=== PATIENT | male | born 1995 | race Caucasian/White ===

== ENCOUNTER 2021-03-11 13:56 | Outpatient (CLI) | payer OTHER, SELFPAY ==
--- NOTE | ~2021-03-11 | CT_ITS ---
EXAMINATION: CT abdomen pelvis w con INDICATION: Left lower quadrant pain TECHNIQUE: Computed tomographic images of the abdomen and pelvis were obtained after the administrati on of 100 cc of Omnipaque 350 intravenous contrast. The dose-length product (DLP) was 321.84 mGy-cm. Automated exposure control and iterative reconstruction technique were employed. COMPARISON: None available FINDINGS: The lung bases are clear. The heart size is normal. The liver, spleen, pancreas, gallbladde r, and adrenal glands are normal. The kidneys are unremarkable. The appendix is not visualized, consi stent with history of appendectomy. No pathologically enlarged abdominal or pelvic lymph nodes are id entified. There is no free intraperitoneal gas or evidence of bowel obstruction. There is a circumscr ibed area of fat attenuation adjacent to the mid descending colon with surrounding fat stranding. IMPRESSION: 1. Findings consistent with epiploic appendagitis of the mid descending colon. Differential includes focal colitis and diverticulitis. Reviewed, dictated and finalized at location A.
[2021-03-11 14:11] LABS: Hematocrit 49.5 % (40.0-54.0); Hemoglobin 17.4 g/dL (14.0-18.0); Mean Corpuscular HGB Conc 35.2 g/dL (32.0-36.0); Mean Corpuscular Hemoglobin 29.3 pg (27.0-31.0); Mean Corpuscular Volume 83.5 fL (78.0-102.0); Platelet Count Result 252 K/mm3 (150-420); Red Blood Count 5.93 M/mm3 (4.70-6.10); Red Cell Distribution Width 11.7 % (11.6-14.4)
[2021-03-11 14:28] LABS: Alanine Aminotransferase 21 U/L (16-63); Albumin Level 4.6 g/dL (3.4-5.0); Alkaline Phosphatase 95 U/L (46-116); Anion Gap 10 mmol/L (8-16); Aspartate Amino Transferase 15 U/L (15-37); Bilirubin,Total 0.6 mg/dL (0.00-1.00); Blood Urea Nitrogen 14 mg/dL (7-18); Calcium 9.2 mg/dL (8.5-10.1); Carbon Dioxide 29 mmol/L (21-32); Chloride 105 mmol/L (98-108); Estimated Glomerular Filt Rate > 60; Glucose 85 mg/dL (70-99); Osmolality Calculated 297 mOsm/kg (285-295); Potassium 4.3 mmol/L (3.5-5.1); Sodium 144 mmol/L (136-145); Total Protein 8.1 g/dL (6.4-8.2)
[2021-03-11 15:20] LABS: Add Urine Microscopic? NO; Appearance Urine Clear (Clear); Bilirubin Urine Negative (Negative); Blood Urine Negative (Negative); Color Urine Light Yellow (Yellow); Glucose Urine UA Negative (Negative); Ketones Urine Negative (Negative); Leukocyte Esterase Ur Negative (Negative); Nitrate Urine Negative (Negative); Protein Urine Negative (Negative); Specific Grav Ur 1.025 (1.010-1.020); Urobilinogen Urine 0.2 mg/dL (0.2-1.0)
== END 2021-03-11 13:57 | disposition home or self-care (01) ==
PROVIDERS: PCP Family Medicine; Visit Provider Family Medicine
DX: R10.9 Unspecified abdominal pain (principal)
CPT/HCPCS: 36415; 74177; 80053; 81003; 85027; Q9967

== ENCOUNTER 2022-12-18 11:56 | Outpatient (CLI) | payer OTHER, SELFPAY ==
[2022-12-18 12:13] LABS: Basophils Absolute Auto 0.05 K/mm3 (0.00-0.10); Basophils Percent Auto 0.8 % (0.0-1.0); Eosinophils Absolute Auto 0.15 K/mm3 (0.02-0.50); Eosinophils Percent Auto 2.4 % (1.0-6.0); Hematocrit 47.2 % (40.0-54.0); Hemoglobin 16.5 g/dL (14.0-18.0); Immature Granulocyte Absolute 0.02 K/mm3 (0.00-0.00); Immature Granulocyte Percent A 0.3 % (0.0-0.0); Lymphocytes Absolute Auto 1.43 K/mm3 (1.10-4.50); Mean Corpuscular Volume 83.1 fL (78.0-102.0); Mean Platelet Volume 9.5 fl (8.7-11.0); Monocytes Absolute Auto 0.56 K/mm3 (0.10-0.90); Neutrophils Percent Auto 64.5 % (50.0-70.0); Platelet Count Result 218 K/mm3 (150-420); Red Blood Count 5.68 M/mm3 (4.70-6.10); Red Cell Distribution Width 11.8 % (11.6-14.4); White Blood Count 6.2 K/mm3 (4.8-10.8)
[2022-12-18 12:23] LABS: Hemoglobin A1C 4.9 % (<5.7)
[2022-12-18 12:52] LABS: Alanine Aminotransferase 19 U/L (16-63); Albumin Level 4.2 g/dL (3.4-5.0); Alkaline Phosphatase 86 U/L (46-116); Anion Gap 8 mmol/L (8-16); Aspartate Amino Transferase 16 U/L (15-37); Bilirubin,Total 0.3 mg/dL (0.00-1.00); Blood Urea Nitrogen 11 mg/dL (7-18); Carbon Dioxide 30 mmol/L (21-32); Chloride 106 mmol/L (98-108); Cholesterol 145 mg/dL (0-200); Estimated Glomerular Filt Rate > 60; Glucose 74 mg/dL (70-99); HDL Direct 52 mg/dL (40-60); LDL Cholesterol Calculated 83 mg/dL (<130); Osmolality Calculated 296 mOsm/kg (285-295); Potassium 3.8 mmol/L (3.5-5.1); Sodium 144 mmol/L (136-145); Total Protein 7.4 g/dL (6.4-8.2); Triglycerides 50 mg/dL (0-150)
[2022-12-23 13:01] LABS: Vitamin D 25 Hydroxy 45 ng/mL (30-100)
== END 2022-12-18 11:57 | disposition home or self-care (01) ==
LOC: CHSLAB 12:00
PROVIDERS: PCP Family Medicine
DX: F32.9 Major depressive disorder, single episode, unspecified (principal)
CPT/HCPCS: 36415; 80053; 80061; 82306; 83036; 85025

== ENCOUNTER 2023-01-27 21:02 | Emergency (ER) | payer OTHER, SELFPAY ==
--- NOTE | ~2023-01-27 | XR_ITS ---
EXAM: XR ankle RT min 3V, XR foot RT min 3V DATE: 01/27/2023 21:26 (accession [id number]), 01/27/2023 21:27 (accession [id number]) HISTORY: twisted his ankle/POSTERIOR AND LATERAL PAIN . COMPARISON: None available. FINDINGS: Normal mineralization. No fracture or dislocation. No lytic or blastic lesion. Joint space s are maintained. No erosion or periosteal change. Mild lateral soft tissue swelling. IMPRESSION: No acute osseous finding in the right ankle or right foot. Reviewed, dictated and finalized at location K. IMPRESSION: No acute osseous finding in the right ankle or right foot.
[2023-01-27 21:04] VITALS: BP 142/82; PULSE 90; RESP 16; TEMP 37.1; O2SAT 99
--- NOTE | 2023-01-27 21:07 | ED.LOWEXIN ---
HPI - Extremity Injury (Lower) General Chief Complaint: Extremity Injury, Lower Stated Complaint: right ankle injury Time Seen by Provider: 01/27/23 21:07 Source: patient Mode of arrival: ambulatory Limitations: no limitations History of Present Illness HPI Narrative: 27-year-old male twisted his right ankle after he stepped on a hole at 11 a.m. this morning. He presents to the ER with -- pain and swelling of his right foot and right ankle no previous injury. He is unable to bear weight. No other injuries noted. MD complaint: ankle injury Onset (ago): hour(s) ( 10 hours ago) Injury: Right: ankle and foot Type of Injury: inversion Place: home Severity: severe Relieving factors: immobilization Exacerbating factors: weight bearing Other symptoms: none Related Data Home Medications Medication Instructions Recorded Confirmed lamotrigine 100 mg tablet 100 mg PO DAILY 01/27/23 01/27/23 Allergies Allergy/AdvReac Type Severity Reaction Status Date / Time Penicillins Allergy Unknown Unknown Verified 01/27/23 21:04 Review of Systems Review of Systems: All systems reviewed & are unremarkable except as noted in HPI and below PMFSH Past Medical History Medical History Depression Surgical History Surgical History History of appendectomy Age 1 Social History Social History Smoking status: Never smoker Lack of Transportation: No Lack of Food: Never True Current Housing: I Have Housing Concerned About Future Housing: No Difficulty Paying Gas/Electric Bills: No Difficulty Paying for Meds: No Currently Unemployed: No Education: Trade/Vocational Certificate Difficulty w/ Childcare or Family Care: No Exam Const: General: healthy appearing Nutritional Appearance: well nourished Orientation/consciousness: patient oriented x3 Limitations: no limitations HENMT: Head: normal to inspection Ears: external ears normal Face/Nose/Sinus: Normal external nose present Face and sinus: normal facial exam Mouth: Yes Normal oral and palatal mucosa present Throat: posterior oropharynx normal Eyes: Conjunctivae: conjunctivae normal Pupils: Equal, round and reactive pupils present EOM: EOMs intact bilaterally Direct Ophthalmoscopy: no photophobia Neck: Neck: normal visual inspection, no lymphadenopathy and no meningeal signs Chest: Chest palpation & inspection: normal inspection of the chest Resp: Effort & Inspection: normal respiratory effort Auscultation: clear to auscultation bilaterally Cardio: Rate: regular rate Rhythm: regular rhythm GI: GI Palp: Yes Soft to palpation Auscultation: normal bowel sounds Back/Spine/Pelvis: Back: no CVA tenderness Skin: General skin exam: normal color Rashes: no rashes Wounds: no wounds Neuro: General: patient oriented x3, moves all extremities, no meningeal signs, no focal motor deficits and CN's II-XI intact bilaterally Cranial nerves: Yes Nystagmus not present Speech: normal speech Gait exam (Neuro): Normal gait present Extrem: General: normal to inspection, no clubbing, cyanosis or edema and no pedal edema Other: pain and swelling of his right foot. Tenderness around lateral malleolus and the proximal foot Psych: Mental Status: mental status grossly normal Affect: normal affect Attitude: cooperative Course Course Emergency Course: right foot/ ankle sprain-- Will get an x-ray to rule out fracture/dislocation patient took ibuprofen before he came to the ER and does not want anything for pain at this time. X-ray of the foot and the ankle are negative for fracture. Would recommend an ankle splint and nonweightbearing for 2 weeks. Vital Signs Vital signs: Vital Signs Temperature 37.1 C 01/27/23 21:04 Pulse Rate 90 01/27/23 21:04 Respiratory Rate 16 01/09
== END 2023-01-27 21:57 | disposition home or self-care (01) ==
PROVIDERS: Emergency Provider Internal Medicine Critical Care Medicine; PCP Family Medicine
DX: S93.411A Sprain of calcaneofibular ligament of right ankle, initial encounter (principal); S93.601A Unspecified sprain of right foot, initial encounter; X50.9XXA Other and unspecified overexertion or strenuous movements or postures, initial encounter; Y92.009 Unspecified place in unspecified non-institutional (private) residence as the place of occurrence of the external cause
CPT/HCPCS: 29515; 73610; 73630; 99283; L4350

== ENCOUNTER 2023-11-10 18:23 | Emergency (ER) | payer OTHER, SELFPAY ==
--- NOTE | ~2023-11-10 | CT_ITS ---
EXAMINATION: CT abdomen pelvis wo con DATE: 11/10/2023 19:26 INDICATION: pain TECHNIQUE: Computed tomography (CT) of the abdomen and pelvis was performed without intravenous contr ast. Automated exposure control and iterative reconstruction technique were employed. The dose-length product was 160.79 mGy-cm. COMPARISON: 03/11/2021, report only. FINDINGS: Lower thorax: Minimal dependent scar/atelectasis. Liver: Normal. Biliary/Gallbladder: Gallbladder is normal. No bile duct dilation. Pancreas: No mass or duct dilation. Spleen: Normal. Adrenals:No mass. Kidneys: No suspicious mass, obstructing stone, or hydronephrosis. GI tract: No small or large bowel dilation. Status post appendectomy. Mesentery/Peritoneum: No ascites, mass, or free air. Retroperitoneum: No mass. Pelvis: Pelvic organs are within normal limits. Soft Tissues: Soft tissues and body wall unremarkable. Bones: No acute osseous finding. IMPRESSION: No acute abdominopelvic process detected. Reviewed, dictated and finalized at location K.
--- NOTE | 2023-11-10 18:25 | ED.MALEGU ---
HPI - Male Genitourinary General Chief complaint: Urogenital-Male Stated complaint: urogenital Time Seen by Provider: 11/10/23 18:23 Source: patient Mode of arrival: ambulatory Limitations: no limitations History of Present Illness HPI Narrative: Patient is a 27-year-old male with bilateral testicle and penis pain for the last 2 days. Pain has been progressively getting worse so he came for evaluation. He went to the urgent care today and they said the urine was clear and come to the emergency room for further thoughts. MD Complaint: testicle pain ( Bilaterally) and other ( penile pain) Onset (ago): day(s) (2) Duration: constant and progressively worsening Location: penis, right testicle and left testicle Radiation: penis, right testicle and left testicle Severity: moderate Severity scale (1-10): 3 Quality: aching Relieving factors: none Exacerbating factors: none Associated symptoms: Reports denies other symptoms Related Data Sexually active: Yes Allergies Allergy/AdvReac Type Severity Reaction Status Date / Time Penicillins Allergy Unknown Unknown Verified 11/10/23 18:30 Review of Systems Review of Systems: All systems reviewed & are unremarkable except as noted in HPI and below Constitutional: Constitutional: Reports no additional constitutional complaints Eyes: Eyes: Reports no additional eye complaints ENT: Reports system reviewed and no additional complaints, except as documented Cardiovascular: Cardiovascular: Reports no additional cardiovascular complaints Respiratory: Respiratory: Reports no additional respiratory complaints Gastrointestinal: Gastrointestinal: Reports no additional gastrointestinal complaints Genitourinary: Genitourinary: Reports no additional male genitourinary complaints Musculoskeletal: Musculoskeletal: Reports no additional musculoskeletal complaints Integumentary/Breasts: Skin/Breast: Reports system reviewed and no additional complaints, except as docu Neurologic: Reports system reviewed and no additional complaints, except as documented Psychiatric: Psychiatric: Reports no additional psychiatric complaints Endocrine: Endocrine: Reports no additional endocrine complaints Hematologic/Lymphatic: Hematologic/Lymphatic: Reports no additional hematologic/lymphatic complaints Allergic/Immunologic: Allergic/Immunologic: Reports no additional allergic/immunologic complaints PMFSH Surgical History Surgical History History of appendectomy Age 1 Social History Social History Smoking status: Never smoker Lack of Transportation: No Lack of Food: Never True Current Housing: I Have Housing Concerned About Future Housing: No Difficulty Paying Gas/Electric Bills: No Difficulty Paying for Meds: No Currently Unemployed: No Education: Trade/Vocational Certificate Difficulty w/ Childcare or Family Care: No Exam Const: General: cooperative, healthy appearing and comfortable HENMT: Head: normal to inspection, No palpable skull fracture present and normocephalic Teeth and gingiva: dentition normal Throat: posterior oropharynx normal Eyes: General: appearance normal, both eyes and all related structures Visual Bunn: normal visual bunn by confrontation Alignment and Position: alignment normal Neck: Neck: normal visual inspection, full ROM and no lymphadenopathy Chest: Chest palpation & inspection: normal inspection of the chest and normal palpation of entire chest wall Resp: Effort & Inspection: normal respiratory effort, able to speak in complete sentences, no grunting, not labored and no nasal flaring Cardio: Jugular venous distension: no JVD Palpation: normal PMI Rate: regular rate Rhythm: regular rhythm Heart sounds: S1 normal heart sound present and S2 normal heart sound present GI: Inspection: normal to inspection Other: Rectal exam
[2023-11-10 18:27] VITALS: BP 151/78; PULSE 81; RESP 18; TEMP 36.6; O2SAT 99
[2023-11-10 18:41] LABS: Appearance Urine Clear (Clear); Bilirubin Urine Negative (Negative); Blood Urine Negative (Negative); Color Urine Light Yellow (Yellow); Glucose Urine UA Negative (Negative); Ketones Urine Negative (Negative); Leukocyte Esterase Ur Negative LEU/UL (Negative); Nitrate Urine Negative (Negative); Protein Urine Negative (Negative); pH Urine 6.5 (5.0-8.0)
[2023-11-10 18:42] LABS: Add Urine Microscopic? NO
[2023-11-10 18:51] LABS: Basophils Absolute Auto 0.04 K/mm3 (0.00-0.10); Basophils Percent Auto 0.7 % (0.0-1.0); Eosinophils Absolute Auto 0.32 K/mm3 (0.02-0.50); Eosinophils Percent Auto 5.7 % (1.0-6.0); Hemoglobin 15.2 g/dL (14.0-18.0); Immature Granulocyte Absolute 0.02 K/mm3 (0.00-0.00); Immature Granulocyte Percent A 0.4 % (0.0-0.0); Lymphocytes Absolute Auto 1.79 K/mm3 (1.10-4.50); Mean Corpuscular HGB Conc 33.8 g/dL (32-36); Mean Corpuscular Hemoglobin 28.1 pg (27.0-31.0); Mean Corpuscular Volume 83.2 fL (78.0-102.0); Mean Platelet Volume 9.2 fl (8.7-11.0); Monocytes Absolute Auto 0.36 K/mm3 (0.10-0.90); Monocytes Percent Auto 6.4 % (2.0-11.0); Neutrophils Absolute Auto 3.07 K/mm3 (1.70-7.20); Neutrophils Percent Auto 54.8 % (50.0-70.0); Platelet Count Result 241 K/mm3 (150-420); Red Blood Count 5.41 M/mm3 (4.70-6.10); Red Cell Distribution Width 12.4 % (11.6-14.4); White Blood Count 5.6 K/mm3 (4.8-10.8)
[2023-11-10 19:33] LABS: Alanine Aminotransferase 21 U/L (16-63); Albumin Level 3.8 g/dL (3.4-5.0); Alkaline Phosphatase 99 U/L (46-116); Anion Gap 9 mmol/L (4-12); Aspartate Amino Transferase 14 U/L (15-37); Bilirubin,Total 0.3 mg/dL (0.00-1.00); Blood Urea Nitrogen 12 mg/dL (7-18); Calcium 8.4 mg/dL (8.5-10.1); Carbon Dioxide 28 mmol/L (21-32); Chloride 104 mmol/L (98-108); Estimated Glomerular Filt Rate > 60; Glucose 139 mg/dL (70-99); Osmolality Calculated 293 mOsm/kg (285-295); Potassium 3.6 mmol/L (3.5-5.1); Sodium 141 mmol/L (136-145); Total Protein 7.2 g/dL (6.4-8.2)
[2023-11-10 19:34] LABS: Prostate Specific Antigen 0.3 ng/mL (< OR = 4.0)
[2023-11-10] MEDS: CIPROFLOXACIN 500 MG TAB PO (19:42)
[2023-11-10 20:27] VITALS: BP 140/72; PULSE 80; RESP 18; TEMP 36.6; O2SAT 98
[2023-11-11 20:11] LABS: Chlamydia trachomatis NOT DETECTED (NOT DETECTE); Neisseria gonorrhoeae PCR NOT DETECTED (NOT DETECTE)
== END 2023-11-10 20:27 | disposition home or self-care (01) ==
PROVIDERS: Emergency Provider Emergency Medicine; PCP Family Medicine
DX: N41.0 Acute prostatitis (principal)
CPT/HCPCS: 36415; 74176; 80053; 81003; 84153; 85025; 87491; 87591; 99284; A9270

== ENCOUNTER 2024-09-21 16:00 | Emergency (ER) | payer OTHER, SELFPAY ==
--- OUTSIDE RECORDS SUMMARY | 2024-09-21 16:03 | XMS_ITS | Clinical Summary ---
Author Organization [address] Address [address] [place] [id number] Care Team Providers Care Retail Client Solutions Analyst Name Role Phone Unknown, Notinfile Primary Care Provider Unavail able Allergies Active Allergy Reactions Criticality Noted Date Comments Penicillins Unknown 04/23/2016 Medications lamoTRIgine (LaMICtal) 150 mg tablet TAKE 1 TABLET BY MOUTH TWICE A DAY FOR 30 DAYS 10/13/2023 Active risperiDONE (RisperDAL) 1 mg tablet TAKE 1 TABLET BY MOUTH EVERY DAY AT BEDTIME FOR 30 DAYS 10/13/2023 Active sertraline (ZOLOFT) 100 mg tablet Take 2 tablets (200 mg total) by mouth daily 09/14/2023 Active traZODone (DESYREL) 50 mg tablet TAKE 1 TABLET BY MOUTH EVERY DAY AT BEDTIME NEEDED FOR 30 DAYS 08/25/2023 Active Active Problems No known active problems Social History Tobacco Use Types Packs/Day Years Used Date Smoking Tobacco: Never Assessed Sex and Gender Information Value Date Recorded Sex Assigned at Not on file 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[employer] Gender Identity Not on file Sexual Orientation Not on file Obstetrics History Last Filed Vital Signs Vital Sign Reading Time Taken Comments Blood Pressure 118/74 11/10/2023 2:53 PM CDT Pulse 81 11/10/2023 2:53 PM CDT Temperature 37.1 C (98.7 F) 11/10/2023 2:53 PM CDT Respiratory Rate 20 11/10/2023 2:53 PM CDT Oxygen Saturation 97% 11/10/2023 2:53 PM CDT Inhaled Oxygen Concentration - - Weight 72.6 kg (160 lb) 11/10/2023 2:53 PM CDT Height 167.6 cm (5' 6 ) 11/10/2023 2:53 PM CDT Body Mass Index 25.82 11/10/2023 2:53 PM CDT Plan of Treatment Health Maintenance Due Date Last Done Comments Depression Screening 1994 Hepatitis C Screening 1994 Varicella Vaccines (2 of 2 - 2-dose childhood series) 06/29/2002 04/06/2002 Regular Well Visit/Exam 18-64 2012 Influenza Vaccine (#1) 2024 3, 06/29/2019, 07/09/2018, Additional history exists DTaP/Tdap/Td Vaccine (8 - Td or Tdap) 12/18/2032 12/18/2022, 07/09/2018, 04/23/2016, Additional history exists Hepatitis B Screening Completed 12/10/1995 , 06/29/1995, 03/23/1995, Additional history exists HPV Vaccines Aged Out No longer eligi ble based on patient's age to complete this topic Pneumococcal vaccine <65 Aged Out No longer eligible based on patient's age to complete this topic Insurance [facility] Care Teams Retail Client Solutions Analyst Relationship Specialty Start Date End Date Unknown, Notinfile PCP - General 11/10/23
--- OUTSIDE RECORDS SUMMARY | 2024-09-21 16:03 | XMS_ITS | Clinical Summary ---
Author Organization [facility] Address [address] [place] [address] Phone Care Team Providers Care Cover Operator Name Role Phone Alina Green MD Primary Care Provider Allergies Active Allergy Reactions Criticality Noted Date Comments Penicillins Unknown 04/23/2016 Medications diclofenac (VOLTAREN) 50 MG Tablet Delayed Response Take 1 Tab by mouth 3 times daily. 270 Tab 3 11/09/2018 Active Active Problems Problem Noted Date Diagnosed Date Inguinodynia, bilateral 11/09/2018 Moderate episode of recurrent major depressive d isorder 02/18/2018 Adjustment disorder with depressed mood 02/18/20 18 Immunizations Immunization Administration Dates Next Due TDAP Vaccine 04/23/2016 Family History Relation Name Status Comments Father Alive Mother Alive Social History Tobacco Use Types Packs/Day Years Used Date Smoking Tobacco: Never Smokeless Tobacco: Never Alcohol Use Standard Drinks/Week Comments Yes 0 (1 standard drink = 0.6 oz pur e alcohol) RARELY Sex and Gender Information Value Date Recorded Sex Assigned at Not on file Legal Sex Male 10:11 PM CDT Gender Identity Not on file Sexual Orientation Not on file Last Filed Vital Signs Vital Sign Reading Time Taken Comments Blood Pressure 134/66 12/07/2018 9:40 AM CDT Pulse 73 12/07/2018 9:40 AM CDT Temperature 36.2 C (97.1 F) 12/07/2018 9:40 AM CDT Respiratory Rate 16 12/07/2018 9:40 AM CDT Oxygen Saturation 97% 12/07/2018 9:40 AM CDT Inhaled Oxygen Concentration - - Weight 63.5 kg (140 lb) 12/07/2018 9:40 AM CDT Height 167.6 cm (5' 6 ) 12/07/2018 9:40 AM CDT Body Mass Index 22.6 12/07/2018 9:40 AM CDT Plan of Treatment Health Maintenance Due Date Last Done Comments Hepatitis C Virus (HCV) Screening 1994 Influenza Immunization (#1) 2024 05/29/2003 SARS-COV-2 Immunization ( season) 2024 Respiratory Syncytial Virus (RSV) Immunization (Adult) (1 - 1-dose 75+ series) 2069 Hepatitis B Immunization Completed 996, 06/29/1995, 03/27/1995, Additional history exists DTaP/Tdap/Td Immunization Discontinued 2015, 01/21/1999, 02/08/1996, Additional history exists Meningococcal Immunization (ACWY) Aged Out No longer eligible based on patient's age to complete this topic Pneumococcal Immunization Combined Aged Out No longer eligible based on patient's age to complete this topic Rotavirus Immunization Aged Out No lo nger eligible based on patient's age to complete this topic Insurance MEDICAID [employer] Care Teams Cover Operator Relationship Specialty Start Date End Date Hsjoieg Alina England MD [address] [place] [address] [facility] [place] [address] PCP - General Family Medicine 12/01/18
--- OUTSIDE RECORDS SUMMARY | 2024-09-21 16:03 | XMS_ITS ---
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 Medication concern Medications Medication SIG (Take, Route, Frequency, Duration) Notes Start Date End Date Status risperiDONE 1 MG TAKE 1.5 TABLETS BY MOUTH EVERY DAY AT BEDTIME for 30 Not-Taking Escitalopram Oxalate 10 MG 1 tablet Orally After stopping sertraline- Take one a day for 7 days then increase to 20 mg script Not-Taking lamoTRIgine 200 MG TAKE 1 TABLET BY CARLOS TH EVERY DAY FOR 30 DAYS for 30 Active Escitalopram Oxalate 20 MG 1 tablet Orally Once a day for 30 days Active busPIRone HCl 10 MG 1 tablet Orally Twic e a day for 30 days 03/10/2024 Active traZODone HCl 50 MG 1 tablet at bedtime as needed Orally Once a day Active Escitalopram Oxalate 20 MG TAKE 1 TABLET BY MOUTH EVERY DAY FOR 30 DAYS for 30 Active lamoTRIgine 200 MG 1 tablet Orally Once a day for 30 days Active Problems Problem Type SNOMED Code ICD Code Onset Dates Problem Status W/U Status Risk Notes Problem Anxiety disorder (840656276) Anxiety disorder, unspecified (F41.9) 03/10/2024 Active confirmed Encounters Encounter Location Date Provider Diagnosis [facility] [address] [address] 03/10/2024 Sally Isabel Chronic depression F32.9 and Anxiety disorder, unspecified F41.9 Assessments Encounter Date Diagnosis (ICD Code) Assessment Notes Treatment Notes Treatment Clinical Notes Section Notes 03/10/2024 Chronic depression (ICD-10 - F32.9) 03/10/2024 Anxiety disorder, unspecified (ICD-10 - F41.9) Today's visit: Patient is a 28-year-old male who presents for a psychiatric f/u, this is my first time meeting this patient, and I am seeing them during the temporary absence of current psych provider. Previously seen on 01/26/2024 by SALVATORE Mc and during this appt was increased on Risperdal to 1.5 mg QHS. Previous PHQ-9 score of 14, today is 16. Rodriguez reported increased irritability after his Risperdal dose was increased to 1.5 mg, which improved upon discontinuation. He has self discontinued Risperdal 1 week ago which improved some of his feelings of irritability but not completely. He continues to experience near daily anxiety. He is currently on Lamotrigine and Escitalopram for depression, which he finds helpful, and is in therapy regularly with Delroy. The plan includes discontinuing Risperdal, continuing current depression medications, starting Buspirone for anxiety, and continuing Trazodone for sleep as needed. No acute safety concerns the time of this appt, he is agreeable to treatment plan and was provided an opportunity to ask questions. Begin buspirone. Take as prescribed. Reviewed purpose - decrease anxiety, benefits, and risks - dizziness, headache, nervousness, sedation, excitement, nausea, and restlessness. May self-administer medications or be administered own oral medications per [place] protocols. Provided informed consent with understanding of side effects, adverse effects, risks and benefits as well as alternative treatments as previously discussed and with the above recommended medications & other aspects of the treatment program. Agrees to return sooner if symptoms worsen or suicidal or homicidal ideations occur., Learning About Anxiety Disorders material was printed, Learning About Generalized Anxiety Disorder material was printed, Learning About Generalized Anxiety Disorder material was printed, Generalized Anxiety Disorder: Care Instructions material was printed, Learning About Generalized Anxiety Disorder material was printed, Generalized Anxiety Disorder: Care Instructions material was printed 03/10/2024 Other Buspirone Oral Tablet (BUSPIRONE - ORAL) material was printed, Plan Of Treatment Medication Medication Name Sig Start Date Stop Date Notes Escitalopram Oxalate 20 MG 1 tablet Oral ly Once a day for 30 days RisperDAL 1 MG 1.5 tablet at bedtim e Orally Once a day for 30 days busPIRone HCl 10 MG 1 tablet Orally Twic e a day for 30 days 03/10/2024 traZODone HCl 50 MG 1 tablet at bedtime as needed Orally Once a day lamoTRIgine 200 MG 1 tablet Orally Once a day for 30 days Treatment Notes Assessment Notes Anxiety disorder, unspecified Today's visit: Patient is a 28-year-old male who presents for a psychiatric f/u, this is my first time meeting this patient, and I am seeing them during the temporary absence of current psych provider. Previously seen on 01/26/2024 by SALVATORE Mc and during this appt was increased on Risperdal to 1.5 mg QHS. Previous PHQ-9 score of 14, today is 16. Rodriguez reported increased irritability after his Risperdal dose was increased to 1.5 mg, which improved upon discontinuation. He has self discontinued Risperdal 1 week ago which improved some of his feelings of irritability but not completely. He continues to experience near daily anxiety. He is currently on Lamotrigine and Escitalopram for depression, which he finds helpful, and is in therapy regularly with Delroy. The plan includes discontinuing Risperdal, continuing current depression medications, starting Buspirone for anxiety, and continuing Trazodone for sleep as needed. No acute safety concerns the time of this appt, he is agreeable to treatment plan and was provided an opportunity to ask questions. Begin buspirone. Take as prescribed. Reviewed purpose - decrease anxiety, benefits, and risks - dizziness, headache, nervousness, sedation, excitement, nausea, and restlessness. May self-administer medications or be administered own oral medications per [place] protocols. Provided informed consent with understanding of side effects, adverse effects, risks and benefits as well as alternative treatments as previously discussed and with the above recommended medications & other aspects of the treatment program. Agrees to return sooner if symptoms worsen or suicidal or homicidal ideations occur., Learning About Anxiety Disorders material was printed, Learning About Generalized Anxiety Disorder material was printed, Learning About Generalized Anxiety Disorder material was printed, Generalized Anxiety Disorder: Care Instructions material was printed, Learning About Generalized Anxiety Disorder material was printed, Generalized Anxiety Disorder: Care Instructions material was printed Other Buspirone Oral Table t (BUSPIRONE - ORAL) material was printed, Next Appt Details Follow Up: 3 Weeks, Reason: med f/u Progress Notes * Watson POSEYDOB:[birth year] (28 yo M)Acc No.[id number]:03/10/2024 Patient: Watson LUQUE Provider: SALVATORE Brady :1995 A ge:28 Y S ex:Male Date:03/10/2024 Address:[facility][note 3] [id number] Pcp:May Lobo Subjective: * Chief Complaints: * P B ct. Medication concern * HPI: P sych F/U: Changes since last visit?: S tates the increase of Risperdal not going great, got aggressive towards everyone including my family . States hasn't been taking and feeling better and not as aggressive. States feels the Risperdal was causing the irritability. States currently under a lot of stress, ever since stopping Risperdal it's gone down a lot . States mood has been a little better, not like it was . Feels the Lexapro is a good switch for him, it's helped . States anxiety I struggle , states feeling anxious every day . Anxiety is random throughout the day, not all day but throughout the day . States anxiety will be caused by some of its stress, sometimes when I try to relax it's out of nowhere . Thinks some of his anxiety may be contributing to his irritability. States in therapy trying to find relaxation coping skills and learning to talk more to his about everything. Is taking trazodone as needed for sleep it's not often , estimates sleeping 5 hours a night on average. Denies any feelings of SI/HI.. D epression Screening: PHQ-9 L ittle interest or pleasure in doing things?More than half the days F eeling down, depressed, or hopeless M ore than half the days T rouble falling or staying asleep, or sleeping too much N early every day F eeling tired or having little energy N early every day P oor appetite or overeating N ot at all F eeling bad about yourself or that you are a failure, or have let yourself or your family down M ore than half the days T rouble concentrating on things, such as reading the newspaper or watching television M ore than half the days M oving or speaking so slowly that other people could have noticed; or the opposite, being so fidgety or restless that you have been moving around a lot more than usual M ore than half the days T houghts that you would be better off or of hurting yourself in some way N ot at all T otal Score 1 6 I nterpretation M oderately Severe Depression Intervention D epression Screening Findings P ositive F ollow-Up for Depression P rescribed psychotropic medications . S uicide Risk Assessment Performed 0 03/10/2024 S creening: [place] Suicide Severity Rating Scale (LF) D o you want to initiate with S creener form 1 . Wish to be : Have you wished you were or wished you could go to sleep and not wake up? N o 2 . Suicidal Thoughts: Have you actually had any thoughts of killing yourself? N o 6 . Suicide Behaviour: Have you ever done anything,started to do anything, or prepared to end your life? N o I nterpretation: L ow Risk This session was completed telephonically/zoom due to COVID-19 emergency, with client/parental/guardian consent. C SSRS Interpretation and Follow Up Plan: CSSRS Interpretation and Follow Up Plan M oderate or High risk requires selection of a follow up plan C SSRS No/Low: intervention not needed at this time G AD-7 Screenin. Feeling nervous, anxious, or on edge : , More than half the days-2. 2. Not being able to stop or control worrying : , Several days-1. 3. Worrying too much about different things : , Several days-1. 4. Trouble sleeping/relaxing : , Nearly every day-3. 5. Being so restless that it is hard to sit still : , More than half the days-2. 6. Becoming easily annoyed or irritable : , Nearly every day-3. 7. Feeling afraid, as if something awful might happen : , Not at all-0. JIA-7 Score T otal score : 12 * ROS: P sych ROS: Constitutional A ll systems negative or controlled on medication unless indicated otherwise.. * Medical History: * Surgical History: a ppendix removed 1998 * Hospitalization/Major Diagno stic Procedure: s uicide attempts x4 * Family History: F ather: alive. M other: alive, diabetes mellitus. 5 brother(s) , 1 sister(s) - healthy. 1 son(s) , 1 daughter(s) - healthy. . * Social History: P rimary Social History: L iving Arrangement L iving Arrangement: I ndependent Living I s this a supportive environment? Y es Alcohol Use A lcohol Use Frequency: N ever Illicit Substance Usage I llicit Substance Usage: N o Employment Status E mployment Status: U nemployed * Medications: T akingtraZODone HCl 50 MG Tablet 1 tablet at bedtime as needed Orally Once a day Escitalopram Oxalate 20 MG Tablet TAKE 1 TABLET BY MOUTH EVERY DAY FOR 30 DAYS lamoTRIgine 200 MG Tablet TAKE 1 TABLET BY MOUTH EVERY DAY FOR 30 DAYS Taking traZODone HCl 50 MG Tablet 1 tablet at bedtime as needed Orally Once a day Taking Escitalopram Oxalate 20 MG Tablet TAKE 1 TABLET BY MOUTH EVERY DAY FOR 30 DAYS Taking lamoTRIgine 200 MG Tablet TAKE 1 TABLET BY MOUTH EVERY DAY FOR 30 DAYS Not-TakingrisperiDONE 1 MG Tablet TAKE 1.5 TABLETS BY MOUTH EVERY DAY AT BEDTIME Escitalopram Oxalate 10 MG Tablet 1 tablet Orally After stopping sertraline- Take one a day for 7 days then increase to 20 mg script Medication List reviewed and reconciled with the patientNot-Taking risperiDONE 1 MG Tablet TAKE 1.5 TABLETS BY MOUTH EVERY DAY AT BEDTIME Not-Taking Escitalopram Oxalate 10 MG Tablet 1 tablet Orally After stopping sertraline- Take one a day for 7 days then increase to 20 mg script Medication List reviewed and reconciled with the patient * Allergies: P enicillin: Allergyno[Allergies Verified] Objective: * Vitals: * Examination: M ental Status Exam: SENSORIUM AND COGNITION A lert, A&OX4. ATTENTION AND CONCENTRATION N o deficits. APPEARANCE P luis alberto interview - unable to determine appearance. ATTITUDE AND BEHAVIOR C ooperative , Pleasant. MEMORY A dequate. EYE CONTACT P luis alberto interview. AFFECT P luis alberto interview - BRANDIE. MOOD D ysthymic. SPEECH QUANTITY A ppropriate. SPEECH QUALITY S pontaneous , soft v olume. THOUGHT PROCESS C oherent and goal directed. THOUGHT CONTENT No evidence of delusional content , No reports of paranoia. LANGUAGE A ppropriate - WDL. MOTOR ACTIVITY P luis alberto interview, BRANDIE. SUICIDAL IDEATION D enies SI or thoughts of self harm. HOMICIDAL IDEATION D enies homicidal ideation or thoughts of aggression. HALLUCINATIONS D enies Auditory, Visual and Tactile hallucinations. INSIGHT A dequate. JUDGMENT A dequate. FUND OF KNOWLEDGE A dequate. ABILITY TO PARTICIPATE IN TREATMENT A dequate. WILLINGNESS TO PARTICIPATE IN TREATMENT A dequate. ? Assessment: * Assessment: 1. A nxiety disorder, unspecified - F41.9 2 . C hronic depression - F32.9 (Primary) Plan: * Treatment: 2. A nxiety disorder, unspecified Start busPIRone HCl Tablet, 10 MG, 1 tablet, Orally, Twice a day, 30 days, 60 Tablet, Refills 1.? Notes:Today's visit:Patient is a [id number] presents for a psychiatric f/u, this is my first timemeeting this patient, and I am seeing them during the temporary absence of currentpsych provider.Previously seen on 01/26/2024 by SALVATORE Chang and during this appt was increased on Risperdal to 1.5 mg QHS.Previous PHQ-9 score of14, today is16. Rodriguez reported increased irritability after his Risperdal dose wasincreased to 1.5 mg, which improved upon discontinuation. He has selfdiscontinued Risperdal 1 week ago which improved some of his feelings ofirritability but not completely. He continues to experience near daily anxiety.He is currently on Lamotrigine and Escitalopram for depression, which he findshelpful, and is in therapy regularly with Delroy. The plan includes discontinuingRisperdal, continuing current depression medications, starting Buspirone foranxiety, and continuing Trazodone for sleep as needed. No acute safety concernsthe time of this appt, he is agreeable to treatment plan and was provided anopportunity to ask questions. Begin buspirone.Take as prescribed. Reviewed purpose - decrease anxiety, benefits, and risks - dizziness, headache, nervousness, sedation, excitement, nausea, and restlessness. May self-administer medications or be administered own oral medications per[place] protocols. Provided informed consent with understanding of sideeffects, adverse effects, risks and benefits as well as alternative treatmentsas previously discussed and with the above recommended medications & otheraspects of the treatment program. Agrees to return sooner if symptoms worsen orsuicidal or homicidal ideations occur., Learning About Anxiety Disorders material was printed, Learning About Generalized Anxiety Disorder material was printed, Learning About Generalized Anxiety Disorder material was printed, Generalized Anxiety Disorder: Care Instructions material was printed, Learning About Generalized Anxiety Disorder material was printed, Generalized Anxiety Disorder: Care Instructions material was printed ? 3. 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 * HPI (History of Present Illness) Category Sub-Category Detail Notes Category Not es Depression Screening PHQ-9 Little inte rest or pleasure in doing things: More than half the days Feeling down, depressed, or hopeless: Mo re than half the days Trouble falling or staying asleep, or sl eeping too much: Nearly every day Feeling tired or having little energy: N early every day Poor appetite or overeating: Not at all Feeling bad about yourself o r that you are a failure, or have let yourself or your family down: More than half the days Trouble concentrating on thi ngs, such as reading the newspaper or watching television: More than half the days Moving or speaking so slowly that other people could have noticed; or the opposite, being so fidgety or restless that you have been moving around a lot more than usual: More than half the days Thoughts that you would be b herbie off or of hurting yourself in some way: Not at all Total Score: 16 Interpretation: Moderately Severe Depres rosa maria Intervention Depression Screening Findings: P ositive Follow-Up for Depression: Prescribed psy chotropic medications . Suicide Risk Assessment Performed: 03/10 JIA-7 Screening 1. Feeling nervous, anxious, or on edge :, More than half the days-2 2. Not being able to stop or control wor rying :, Several days-1 3. Worrying too much about different thi ngs :, Several days-1 4. Trouble sleeping/relaxing :, Nearly e very day-3 5. Being so restless that it is hard to sit still :, More than half the days-2 6. Becoming easily annoyed or irritable :, Nearly every day-3 7. Feeling afraid, as if leopoldo ething awful might happen :, Not at all-0 JIA-7 Score Total score: : 12 Psych F/U Changes since last visit?: States the increase of Risperdal not going great, got aggressive towards everyone including my family . States hasn't been taking and feeling better and not as aggressive. States feels the Risperdal was causing the irritability. States currently under a lot of stress, ever since stopping Risperdal it's gone down a lot . States mood has been a little better, not like it was . Feels the Lexapro is a good switch for him, it's helped . States anxiety I struggle , states feeling anxious every day . Anxiety is random throughout the day, not all day but throughout the day . States anxiety will be caused by some of its stress, sometimes when I try to relax it's out of nowhere . Thinks some of his anxiety may be contributing to his irritability. States in therapy trying to find relaxation coping skills and learning to talk more to his about everything. Is taking trazodone as needed for sleep it's not often , estimates sleeping 5 hours a night on average. Denies any feelings of SI/HI. Screening [place] Suicide Severity Rating Scale (LF) Do you want to initiate with: Screener form This session was completed telephonically/zoom due to COVID-19 emergency, with client/parental/deloris n consent. 1. Wish to be : Have you wished you were or wished you could go to sleep and not wake up?: No 2. Suicidal Thoughts: Have you actually had any thoughts of killing yourself?: No 6. Suicide Behavior Question: Have you ever done anything,started to do anything, or prepared to end your life?: No Interpretation:: Low Risk Do Not Use CSSRS Interpretation and Follow Up Plan CSSRS Interpretation and Follow Up Plan Moderate or High risk requires selection of a follow up plan: CSSRS No/Low: intervention not needed at this time Examination Category Sub-Category Detail Notes Category Not es Mental Status Exam SENSORIUM AND COGNITION Alert, A&OX 4 ATTENTION AND CONCENTRATION No deficits APPEARANCE Phone interview - un able to determine appearance ATTITUDE AND BEHAVIOR Cooperative , Plea cuca MEMORY Adequate EYE CONTACT Phone interview AFFECT Phone interview - UT A MOOD Dysthymic SPEECH QUANTITY Appropriate SPEECH QUALITY Spontaneous , soft v olume THOUGHT PROCESS Coherent and goal di rected THOUGHT CONTENT No evidence of delus ional content , No reports of paranoia MOTOR ACTIVITY Phone interview, BRANDIE SUICIDAL IDEATION Denies SI or thought s of self harm HOMICIDAL IDEATION Denies homicidal muriel ation or thoughts of aggression HALLUCINATIONS Denies Auditory, Vis ual and Tactile hallucinations INSIGHT Adequate JUDGMENT Adequate FUND OF KNOWLEDGE Adequate ABILITY TO PARTICIPATE IN TREATMENT Adeq uate WILLINGNESS TO PARTICIPATE IN TREATMENT Adequate LANGUAGE Appropriate - WDL
--- OUTSIDE RECORDS SUMMARY | 2024-09-21 16:03 | XMS_ITS ---
Author Organization [facility] Address [address] [place] [address] Care Team Providers Care Distribution Manager Name Role Phone Nirali Cook Primary Care Provider Allergies Allergen (clinical drug ingredient) Drug/Non Drug Allergy documented on EMR Reaction Allergy Type Onset Date Status Penicillin Unknown Drug Allergy Active REASON FOR VISIT 2 Month Psych F/U & Med Refill Medications Medication SIG (Take, Route, Frequency, Duration) Notes Start Date End Date Status lamoTRIgine 200 MG 1 tablet Orally Once a day for 30 days Active traZODone HCl 50 MG 1 tablet at bedtime as needed Orally Once a day Active busPIRone HCl 10 MG 1 tablet Orally Twic e a day for 30 days Active Escitalopram Oxalate 20 MG 1 tablet Oral ly Once a day for 30 days Active Encounters Encounter Location Date Provider Diagnosis [place] [address] [place] [address] 06/07/2024 Nirali Cook Anxiety disorder, unspecified F41.9 and Chronic depression F32.9 Assessments Encounter Date Diagnosis (ICD Code) Assessment Notes Treatment Notes Treatment Clinical Notes Section Notes 06/07/2024 Anxiety disorder, unspecified (ICD-10 - F41.9) Mututal agreement to continue current regimen. Encouraged to f/u with PCP for routine labs and monitoring. 06/07/2024 Chronic depression (ICD-10 - F32.9) 06/07/2024 Other Reasons, potential benefits, potential risks, interactions and side effects of all medications were discussed. The Patient/Guardian asked appropriate questions, appeared to understand the answers, and decided to accept the treatment and continue being followed. Alternatives and expected course without treatment were reviewed. The Patient/Guardian is aware of the need to contact the office or return for an earlier appointment if any problems or concerns arise. May also contact the 24-hour crisis hotline ([facility]), refer to the closest emergency room or call 911 if new symptoms arise of existing symptoms worsen. The Patient/Guardian is aware that this would apply to symptoms like: suicidal ideation, homicidal ideation, high risk behaviors, manic symptoms, psychotic symptoms, physical symptoms, or any other symptoms that may be dangerous to self or others. Greater than 50% of time spent on coordination and counseling where psychopharmacology as well as psychotherapeutic interventions were discussed along with review of treatments in the past. Education provided concerning need for adequate hydration. Patient/Guardian verbalized understanding of education, treatment plan and follow up. This session was completed telephonically with client/parental/guard joie consent: Unable to determine movement status, assess appearance, affect, AIMS, or vital signs. Plan Of Treatment Medication Medication Name Sig Start Date Stop Date Notes lamoTRIgine 200 MG 1 tablet Orally Once a day for 30 days traZODone HCl 50 MG 1 tablet at bedtime as needed Orally Once a day busPIRone HCl 10 MG 1 tablet Orally Twic e a day for 30 days Escitalopram Oxalate 20 MG 1 tablet Oral ly Once a day for 30 days Treatment Notes Assessment Notes Anxiety disorder, unspecified Mututal agreement to continue current regimen. Encouraged to f/u with PCP for routine labs and monitoring. Other Reasons, potential benefits, potential risks, interactions and side effects of all medications were discussed. The Patient/Guardian asked appropriate questions, appeared to understand the answers, and decided to accept the treatment and continue being followed. Alternatives and expected course without treatment were reviewed. The Patient/Guardian is aware of the need to contact the office or return for an earlier appointment if any problems or concerns arise. May also contact the 24-hour crisis hotline ([facility]), refer to the closest emergency room or call 911 if new symptoms arise of existing symptoms worsen. The Patient/Guardian is aware that this would apply to symptoms like: suicidal ideation, homicidal ideation, high risk behaviors, manic symptoms, psychotic symptoms, physical symptoms, or any other symptoms that may be dangerous to self or others. Greater than 50% of time spent on coordination and counseling where psychopharmacology as well as psychotherapeutic interventions were discussed along with review of treatments in the past. Education provided concerning need for adequate hydration. Patient/Guardian verbalized understanding of education, treatment plan and follow up. This session was completed telephonically with client/parental/guardian consent: Unable to determine movement status, assess appearance, affect, AIMS, or vital signs. Next Appt Details Follow Up: 3 Months, Reason: In-office psych F/U Progress Notes * Watson POSEYDOB:[birth year] (28 yo M)Acc No.[id number]:06/07/2024 Patient: Watson LUQUE Provider: Daren Cook, MSN, STEREO EQUIPMENT INSTALLER, CATTLE CARE WORKER-C :1995 A ge:28 Y S ex:Male Date:06/07/2024 Address:[address] [place], [place] [id number] Subjective: * Chief Complaints: * 2 Month Psych F/U & Med Refill * HPI: D epression Screening: PHQ-9 L ittle interest or pleasure in doing things M ore than half the days, F eeling down, depressed, or hopeless S everal days, T rouble falling or staying asleep, or sleeping too much M ore than half the days, F eeling tired or having little energy N early every day, P oor appetite or overeating N ot at all, F eeling bad about yourself or that you are a failure, or have let yourself or your family down S everal days, T rouble concentrating on things, such as reading the newspaper or watching television?More than half the days, M oving or speaking so slowly that other people could have noticed; or the opposite, being so fidgety or restless that you have been moving around a lot more than usual S everal days, T houghts that you would be better off or of hurting yourself in some way N ot at all, T otal Score 1 2, I nterpretation M oderate Depression. I ntervention D epression Screening Findings P ositive, F ollow-Up for Depression P rescribed psychotropic medications .. S creening: [place] Suicide Severity Rating Scale (LF) D o you want to initiate with S creener form, 1 . Wish to be : Have you wished you were or wished you could go to sleep and not wake up? N o, 2 . Suicidal Thoughts: Have you actually had any thoughts of killing yourself? N o, 6 . Suicide Behaviour: Have you ever done anything,started to do anything, or prepared to end your life? N o, I nterpretation: L ow Risk. This session was completed telephonically/zoom due to COVID-19 emergency, with client/parental/guardian consent. C SSRS Interpretation and Follow Up Plan: CSSRS Interpretation and Follow Up Plan M oderate or High risk requires selection of a follow up plan C SSRS No/Low: intervention not needed at this time.? P sychiatric Assessment - Current Symptoms: How is ct doing today? Client is a 28 yo M on the phone reports medication duckworth, things are fine. Life-duckworth, things are stressful. Coping mechanisms: working on these with therapy. Depression: 09/19 Anxiety: 01/17 Anger/irritability: A little bit, but not like it was before the new meds. Social: Talks with friends and family. States he has a good support system. Sleep: Not the best, but I have also been busy. Reports has not been taking trazodone often. Appetite: Good Energy: Not much lately. Drugs/ETOH: Reports caffeine, I down energy drinks. Concentration: I zone out a lot. Denies SI/HI. Medical changes/concerns: Denies. * ROS: P sych ROS: Constitutional D enies. E yes D enies. E ars/Nose/Mouth/Throat D enies. R espiratory R eports, A sthma. A llergic/Immunologic D enies. C ardiovascular D enies. G I D enies. G U D enies. M usculoskeletal D enies. N eurological D enies. I ntegumentary Denies. E ndocrine D enies. H ematological/Lymphatic D enies. P sych R eports minimal depression and mild anxiety.. * Medical History: * Surgical History: a ppendix removed 1998 * Hospitalization/Major Diagno stic Procedure: s uicide attempts x4 * Family History: F ather: alive. M other: alive, diabetes mellitus. 5 brother(s) , 1 sister(s) - healthy. 1 son(s) , 1 daughter(s) - healthy. . * Social History: P rimary Social History: L iving Arrangement L iving Arrangement: I ndependent Living, I s this a supportive environment? Y es. A lcohol Use A lcohol Use Frequency: N ever. I llicit Substance Usage I llicit Substance Usage: N o. E mployment Status E mployment Status:?Unemployed. * Medications: T akingtraZODone HCl 50 MG Tablet 1 tablet at bedtime as needed Orally Once a day busPIRone HCl 10 MG Tablet 1 tablet Orally Twice a day lamoTRIgine 200 MG Tablet 1 tablet Orally Once a day Escitalopram Oxalate 20 MG Tablet 1 tablet Orally Once a day Medication List reviewed and reconciled with the patientTaking traZODone HCl 50 MG Tablet 1 tablet at bedtime as needed Orally Once a day Taking busPIRone HCl 10 MG Tablet 1 tablet Orally Twice a day Taking lamoTRIgine 200 MG Tablet 1 tablet Orally Once a day Taking Escitalopram Oxalate 20 MG Tablet 1 tablet Orally Once a day Medication List reviewed and reconciled with the patient * Allergies: P enicillin: Allergyno[Allergies Verified] Objective: * Vitals: * Examination: M ental Status Exam: SENSORIUM AND COGNITION Alert, Oriented to Person, Oriented to Place, Oriented to Time, Oriented to Situation. ATTENTION AND CONCENTRATION No deficits. ATTITUDE AND BEHAVIOR Cooperative, Receptive. MEMORY Immediate, Recent, Remote. MOOD E uthymic. SPEECH QUANTITY A ppropriate. SPEECH QUALITY Appropriate volume. THOUGHT PROCESS Coherent and goal directed. THOUGHT CONTENT Appropriate - WNL. MOTOR ACTIVITY P luis alberto interview.. SUICIDAL IDEATION D enies suicidal ideation, Denies self-harm activities. HOMICIDAL IDEATION Denies homicidal ideation. HALLUCINATIONS Denies hallucinations. INSIGHT F air. JUDGMENT F air. FUND OF KNOWLEDGE F air. ABILITY TO PARTICIPATE IN TREATMENT M oderate. WILLINGNESS TO PARTICIPATE IN TREATMENT M oderate. E xam limited due to telephone encounter. Assessment: * Assessment: 1. A nxiety disorder, unspecified - F41.9 2 . C hronic depression - F32.9 (Primary) Plan: * Treatment: 2. A nxiety disorder, unspecified Refill busPIRone HCl Tablet, 10 MG, 1 tablet, Orally, Twice a day, 30 days, 60 Tablet, Refills 2.? Notes: Mututal agreement to continue current regimen. Encouraged to f/u with PCP for routine labs and monitoring. 3. O thers Notes: Reasons, potential benefits, potential risks, interactions and side effects of all medications were discussed. The Patient/Guardian asked appropriate questions, appeared to understand the answers, and decided to accept the treatment and continue being followed. Alternatives and expected course without treatment were reviewed. The Patient/Guardian is aware of the need to contact the office or return for an earlier appointment if any problems or concerns arise. May also contact the 24-hour crisis hotline ([facility]), refer to the closest emergency room or call 911 if new symptoms arise of existing symptoms worsen. The Patient/Guardian is aware that this would apply to symptoms like: suicidal ideation, homicidal ideation, high risk behaviors, manic symptoms, psychotic symptoms, physical symptoms, or any other symptoms that may be dangerous to self or others. Greater than 50% of time spent on coordination and counseling where psychopharmacology as well as psychotherapeutic interventions were discussed along with review of treatments in the past. Education provided concerning need for adequate hydration. Patient/Guardian verbalized understanding of education, treatment plan and follow up. This session was completed telephonically with client/parental/guardian consent: Unable to determine movement status, assess appearance, affect, AIMS, or vital signs. * Procedure Codes: * Follow Up: 3 Months (Reason: In-office psych F/U) * * Sign off status: Completed true * Provider: Daren Cook, MSN, STEREO EQUIPMENT INSTALLER, CATTLE CARE WORKER-C Date: Generated for Conchita lyn/Cele/Navin on: 09/21/2024 04:03 PM BISQUE BRUSHER History and Physical Notes * HPI (History of Present Illness) Category Sub-Category Detail Notes Category Not es Depression Screening PHQ-9 Little inte rest or pleasure in doing things: More than half the days Feeling down, depressed, or hopeless: Se veral days Trouble falling or staying a sleep, or sleeping too much: More than half the days Feeling tired or having little energy: N early every day Poor appetite or overeating: Not at all Feeling bad about yourself o r that you are a failure, or have let yourself or your family down: Several days Trouble concentrating on thi ngs, such as reading the newspaper or watching television: More than half the days Moving or speaking so slowly that other people could have noticed; or the opposite, being so fidgety or restless that you have been moving around a lot more than usual: Several days Thoughts that you would be b herbie off or of hurting yourself in some way: Not at all Total Score: 12 Interpretation: Moderate Depression Intervention Depression Screening Findings: P ositive Follow-Up for Depression: Prescribed psy chotropic medications . Psychiatric Assessment - Current Symptoms How is ct doing today? Client is a 28 yo M on the phone reports medication duckworth, things are fine. Life-duckworth, things are stressful. Coping mechanisms: working on these with therapy. Depression: 09/19 Anxiety: 01/17 Anger/irritability: A little bit, but not like it was before the new meds. Social: Talks with friends and family. States he has a good support system. Sleep: Not the best, but I have also been busy. Reports has not been taking trazodone often. Appetite: Good Energy: Not much lately. Drugs/ETOH: Reports caffeine, I down energy drinks. Concentration: I zone out a lot. Denies SI/HI. Medical changes/concerns: Denies Screening [place] Suicide Severity Rating Scale (LF) Do you want to initiate with: Screener form This session was completed telephonically /zoom due to COVID-19 emergency, with client/parenta l/guardian consent. 1. Wish to be : Have [...] Mental Status Exam SENSORIUM AND COGNITION Alert, Oriented to Person, Oriented to Place, Oriented to Time, Oriented to Situation Exam limited due to telephone encounter. ATTENTION AND CONCENTRATION No deficits ATTITUDE AND BEHAVIOR Cooperative, Client Service Professional tive MEMORY Immediate, Recent, R emote MOOD Euthymic SPEECH QUANTITY Appropriate SPEECH QUALITY Appropriate volume THOUGHT PROCESS Coherent and goal di rected THOUGHT CONTENT Appropriate - WNL MOTOR ACTIVITY Phone interview. SUICIDAL IDEATION Denies suicidal idea tion, Denies self-harm activities HOMICIDAL IDEATION Denies homicidal muriel ation HALLUCINATIONS Denies hallucination s INSIGHT Fair JUDGMENT Fair FUND OF KNOWLEDGE Fair ABILITY TO PARTICIPATE IN TREATMENT Mode rate WILLINGNESS TO PARTICIPATE IN TREATMENT Moderate
--- OUTSIDE RECORDS SUMMARY | 2024-09-21 16:03 | XMS_ITS | Referral Summary ---
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
--- OUTSIDE RECORDS SUMMARY | 2024-09-21 16:03 | XMS_ITS | Patient Health Record ---
Author Organization [facility] Address [address] [place] [address] Care Team Providers Care Social Services Counselor Name Role Phone Nirali Cook Primary Care Provider [phone] Pradeep Ingris Unavailable [phone] AydeePaola Unavailable [phone] Sally Isabel Unavailable [phone] Allergies Allergen (clinical drug ingredient) Drug/Non Drug Allergy documented on EMR Reaction Allergy Type Onset Date Status Penicillin Unknown Drug Allergy Active Reason For Referral No Information Medications Medication SIG (Take, Route, Frequency, Duration) [...] Once a day for 30 days Active Social History Tobacco Use: Social History Observation Description Date Details (start date - stop date) Never Smoker NA - NA Dont use, Tobacco Use/Smoking Question Answer Notes Are you a nonsmoker Problems Problem Type SNOMED Code ICD Code Onset Dates Problem Status W/U Status Risk Notes Problem Anxiety disorder (265391956) Anxiety disorder, unspecified (F41.9) Active confirmed Problem Chronic depression (680626711) Chronic depression (F32.9) Active confirmed Encounters Encounter Location Date Provider Diagnosis [address] [place] [address] 12/09/2023 Nirali Cook Chronic depression F32.[address] [address] 12/17/2023 Niralishana LongJoey Chronic depression F32.[address] [address] 01/26/2024 Paola Bajwa Chronic depression F32.9 [facility] [address] [place] [address] 03/10/2024 Pedritoavi Maame Chronic depression F32.9 and Anxiety disorder, unspecified F41.9 [facility] [address] [place] [address] 06/07/2024 Nirali Cook Anxiety disorder, unspecified F41.9 and Chronic depression F32.[address] [address] 01/20/2024 Niralishana LongJoey Chronic depression F32.[address] [address] 06/03/2024 Ingris Powers Chronic depression F32.9 Assessments Encounter Date Diagnosis (ICD Code) Assessment Notes Treatment Notes Treatment Clinical Notes Section Notes 06/03/2024 Chronic depression (ICD-10 - F32.9) 03/10/2024 Anxiety [...] or be administered own oral medications per [place] protocols. Provided informed consent with understanding of [...] Disorder: Care Instructions material was printed 03/10/2024 Chronic depression (ICD-10 - F32.9) 12/09/2023 Chronic depression (ICD-10 - F32.9) Client reports had only been taking lamotrigine 150mg QHS, does not remember to take morning medication. Increasing nightly dose to 200mg. Has been on Zoloft for >2 years, weaning down and then to start escitalopram.Discussed wean with client, reports does not need Zoloft refilled. Discussed possible increase in aggitation/dep ression while working on medication changes. May look to add low-dose risperidone during the day PRN. 12/17/2023 Chronic depression (ICD-10 - F32.9) Client to start lexapro tonight and stop zoloft- has taken 50mg dose and may stop. Increase Lexapro to 20 mg after 3 days of 10 mg. Adding in daytime risperidone 0.25 mg for aggitation while adjusting SSRIs. Discussed plan in length with client and his significant other per his request. F/U in 2 weeks or before PRN. If client feels more SIB thoughts/actions, client to call crisis line, [phone], or go into hospital. 01/20/2024 Chronic depression (ICD-10 - F32.9) 01/26/2024 Chronic depression (ICD-10 - F32.9) Pt reports that he is not needing a refill of Trazodone at this time. Will stop AM Risperidone dose as it is causing drowsiness. Will increase Risperidone dose to 1.5mg at bedtime. Pt agrees to continue Lamotrigine and Escitalopram at this time. Pt denies SI/HI at this time. Encouraged pt to continue to see therapist. 06/07/2024 Anxiety disorder, unspecified (ICD-10 - F41.9) Mututal agreement to continue current regimen. Encouraged to f/u with PCP for routine labs and monitoring. 06/07/2024 Chronic depression (ICD-10 - F32.9) 12/09/2023 Other Reasons, potential benefits, potential risks, interactions [...] May also contact the 24-hour crisis hotline ([facility]), refer to the closest emergency [...] up. This session was completed telephonically with client/parental/guardi an consent: Unable to determine movement status, assess appearance, affect, AIMS, or vital signs. 12/17/2023 Other Reasons, potential benefits, potential risks, interactions [...] May also contact the 24-hour crisis hotline ([facility]), refer to the closest emergency [...] up. This session was completed telephonically with client/parental/guardi an consent: Unable to determine movement status, assess appearance, affect, AIMS, or vital signs. 01/26/2024 Other Discussed treat ment planDiscussed sleep hygiene and caffeine intakeReturn to clinic 4 weeksEncouraged counselingDiscussed treatment plan; patient is agreeable and accepting of treatment plan. Patient denies further questions or concerns at this time. The Patient/Guardian asked appropriate questions, appeared to understand the answers, and decided to accept the treatment and continue being followed.The Patient/Guardian is aware of the need to contact the office or return for an earlier appointment if any problems or concerns arise. May also contact the [facility]), refer to the closest emergency room or call 911 if new symptoms arise of existing symptoms worsen; the Patient/Guardian is aware that this would apply to symptoms such as: suicidal ideation, homicidal ideation, high risk behaviors, manic symptoms, psychotic symptoms, physical symptoms, or any other symptoms that may be dangerous to self or others. 03/10/2024 Other Buspirone Oral Tablet (BUSPIRONE - ORAL) material was printed, 06/07/2024 Other Reasons, potential benefits, potential risks, [...] or concerns arise. May also contact the [facility] ([facility]), refer to the closest emergency room [...] up. This session was completed telephonically with client/parental/guardi an consent: Unable to determine movement status, assess appearance, affect, AIMS, or vital signs. Plan Of Treatment Future Test Test Name Order Date Vitamin D, 25-Hydroxy* 11/20/2022 Insurance Providers Payer Name Payer Address Payer Phone Subscriber Number Group Number Insured Name Patient Relationship to Insured Coverage Start Date [facility]age End Date [facility] [address] [place] [id number] [phone] [id number] Watson Posey Self - patient is the insured [facility] [address] [address] [phone] [id number] Watson Posey Self - patient is the insured 3 Medical (General) History Medical History History ICD Code Asthma Surgical History Surgery Date(Month/Year) appendix removed 1998 Hospitalization History Reason Date(Month/Year) suicide attempts x4
--- OUTSIDE RECORDS SUMMARY | 2024-09-21 16:04 | XMS_ITS ---
Author Organization [facility] Address [address] [place] [address] Care Team Providers Care Negative Cutter Name Role Phone Nirali Cook Primary Care Provider Ingris Fernández [phone] REASON FOR VISIT Refills Medications Medication SIG (Take, Route, Frequency, Duration) Notes Start Date End Date Status lamoTRIgine 200 MG 1 tablet Orally Once a day for 7 days Active Escitalopram Oxalate 20 MG 1 tablet Oral ly Once a day for 7 days Active Encounters Encounter Location Date Provider Diagnosis [address] [address] 06/03/2024 Ingris Fernández Chronic depression F32.9 Assessments Encounter Date Diagnosis (ICD Code) Assessment Notes Treatment Notes Treatment Clinical Notes Section Notes 06/03/2024 Chronic depression (ICD-10 - F32.9) Plan Of Treatment Medication Medication Name Sig Start Date Stop Date Notes lamoTRIgine 200 MG 1 tablet Orally Once a day for 7 days Escitalopram Oxalate 20 MG 1 tablet Oral ly Once a day for 7 days Progress Notes * Watson POSEYDOB:[birth year] (28 yo M)Acc No.[id number]:06/03/2024 Patient: Watson LUQUE :1995 A ge:28 Y S ex:Male Address:[facility] [place] [address] * Refills Refill lamoTRIgine Tablet, 200 MG, Orally, 7 Tablet, 1 tablet, Once a day, 7 days, Refills=0 Refill Escitalopram Oxalate Tablet, 20 MG, Orally, 7 Tablet, 1 tablet, Once a day, 7 days, Refills=0 * true * Date: Generated for Conchita lyn/Cele/Supriyaitting on: 0 09/21/2024 04:03 PM WOOL MIXER
[2024-09-21 16:05] VITALS: BP 153/82; PULSE 120; RESP 20; TEMP 36.1; O2SAT 98
[2024-09-21 16:22] LABS: EDCOVIDSCREEN Negative (Negative); EDINFLUASCREEN Positive (Negative); EDINFLUBSCREEN Negative (Negative)
--- NOTE | 2024-09-21 16:38 | ED.URI ---
HPI - URI/Sore Throat General Chief Complaint: Upper Respiratory Infection Stated Complaint: Cough Time Seen by Provider: 09/21/24 16:20 Source: patient, RN notes reviewed and old records reviewed Mode of arrival: ambulatory Limitations: no limitations History of Present Illness HPI Narrative: 28 [facility] of cough, chills and fevers with headache which started last night Patient reports that he 103F fever last night and he has been taking Tylenol and Ibuprofen and also Flu and cold medication OTC. Patient reports that chest hurts with cough denies any shortness of breath. MD elicited complaint: cough and other (chills fever, headache) Pertinent past history: asthma Severity: moderate Treatments prior to arrival: acetaminophen, ibuprofen and other (Flu and cold medication) Related Data Home Medications ?Medication ?Instructions ?Recorded ?Confirmed ?Last Taken ?Type buspirone 10 mg tablet mg 09/21/24 Unknown History Allergies Allergy/AdvReac Type Severity Reaction Status Date / Time Penicillins Allergy Unknown Unknown Verified 09/21/24 16:14 Review of Systems Review of Systems: CONSTITUTIONAL: Reports malaise, chills, sweats, or fever. EYES: Denies visual changes, redness, or discharge. ENT: Reports rhinorrhea, congestion, sinus pain, no otalgia and no sore throat. CARDIOVASCULAR: Denies chest pain, palpitations, or edema. RESPIRATORY: Reports cough.? Denies dyspnea.states chest hurts with cough GASTROINTESTINAL: Denies abdominal pain, nausea, vomiting, diarrhea SKIN: Denies rash or itching. MUSCULOSKELETAL: Denies myalgia. NEUROLOGIC:Positive for headache. All systems reviewed & are unremarkable except as noted in HPI and below PMFSH Past Medical History Medical History Asthma Anxiety and depression Surgical History Surgical History History of appendectomy Age 1 Social History Social History Smoking status: Never smoker Lack of Transportation: No Lack of Food: Never True Current Housing: I Have Housing Concerned About Future Housing: No Difficulty Paying Gas/Electric Bills: No Difficulty Paying for Meds: No Currently Unemployed: No Education: Trade/Vocational Certificate Difficulty w/ Childcare or Family Care: No Comments At time of signature, agree with nursing past medical, surgical, social and family history. There is no relevant family history pertinent to the presenting complaint Exam Narrative: GENERAL: Well-appearing, well-nourished, and in no acute distress. HEAD: Normocephalic EYES: PERRLA, conjunctivae clear ENT: Nares clear, turbinates edematous and erythematous, clear discharge. Mucous membranes moist. TM pearly carrera with dull light reflex bilaterally; no tragal tenderness. Oropharynx erythematous without lesions. Tonsils not enlarged and without exudate, no drooling, no hoarseness, no trismus, uvula midline.post nasal drainage NECK: Supple. No lymphadenopathy CHEST: Coarse breath sounds on auscultation, breath sounds equal. No wheezing, rhonchi, rales, or stridor. No respiratory distress, speaks in full sentences.cough SAO2 98% on room air HEART: Regular rate and rhythm. No murmur heard. SKIN: Warm, dry, no rash. NEURO: Alert and oriented x3. PSYCH: Normal mood and affect Course Course Emergency Course: Patient is aware of diagnosis, understands and agrees to treatment plan.? Anticipatory guidance given.? Patient agrees to follow-up as directed and is aware of reasons to seek care at the emergency department. Portions of this record may have been created with voice recognition software Level of Care: Express Care Visit Vital Signs Vital signs: Vital Signs Temperature 36.1 C L 09/21/24 16:05 Pulse Rate 120 H 09/21/24 16:05 Respiratory Rate 20 09/21/24 16:05 Blood Pressure 153/82 H 09/21/24 16:05 Pulse Oximetry 98 09/21/24 16:05 Oxygen Delivery Room Air 09/21/24 16:05 Temperature 36.1 C L 09/21/24 16:05 Pulse Rate 120 H 09/21/24 16:05 Respiratory Rate 09/21/24 16:05 Blood Pressure 153/82 H 09/21/24 16:05 Pulse Oximetry 98 09/21/24 16:05 Oxygen Delivery Room Air 09/21/24 16:05 Reviewed MDM - URI/Sore Throat MDM Narrative Medical decision making narrative: Differential diagnosis considered: Schwartz virus, strep pharyngitis, allergic rhinitis, upper respiratory tract infection, sinusitis, rhinosinusitis, nasopharyngitis. viral pharyngitis, otitis media, otitis externa, pneumonia, bronchitis, viral cough syndrome, viral syndrome, and influenza.? Exam findings show no acute concerns or changes; patient is non-toxic appearing and is in no distress.? Patient is appropriate for outpatient treatment and follow-up. Differential Diagnosis Differential diagnosis: Likely upper respiratory infection, viral infection, bronchitis, influenza and other (COVID, acute cough) Medical Records Attestation: I reviewed the patient's medical records. Lab Data Attestation: I reviewed the patient's lab results. Lab results narrative: Influenza A positive, Influenza B negative, COVID antigen negative Labs: Lab Results 09/21/24 Range/Units 16:19 POC Influenza A Ag Positive (Negative) POC Influenza B Ag Negative (Negative) POC SARS CoV-2 Ag Negative (Negative) Critical Care Time Critical Care Time Critical Care Time: No Discharge Plan Discharge Clinical Impression: Influenza A Patient Disposition: Home, Self-Care Condition: Stable Instructions: Antibiotic Form, Influenza (ED) Additional Instructions: Increase fluids especially juices and water Bivl-vvz-vqwfilt cough and cold medicine of your choice for your symptoms Tylenol or Ibuprofen for any fever or pain Cough medication as prescribed Steroids as directed--take with food heat to the face 20-30 minutes 4-6 times a day for pain Salt water gargles, throat lozenges or throat sprays as desired Zyrtec Claritin or Sheridan daily You must be fever free for 24 hours without use of Tylenol or ibuprofen before you can return to work Patient Language: Indonesian Prescriptions: New prednisone 20 mg tablet 20 mg PO BID Qty: 10 0RF Rx Instructions: take am and pm before 6 pm take with food Tussin Cough (DM only) 15 mg/5 mL liquid 15 mg PO ONCE Qty: 118 0RF No Action buspirone 10 mg tablet lamotrigine 100 mg tablet 150 mg PO DAILY Qty: 30 0RF sertraline 100 mg tablet See Rx Instructions .ROUTE .COMPLEX Qty: 180 0RF Dose Instruction: TAKE 2 TABLETS BY MOUTH DAILY Rx Instructions: TAKE 2 TABLETS BY MOUTH DAILY Follow-up/Referrals: Matty Golden DO [Primary Care Provider] - Time of Disposition: 16:43 Quality Ric Coma Scale Eyes: Open Verbal: Oriented and Alert Motor: Follows Commands Ric Coma Total Score: 15
== END 2024-09-21 16:49 | disposition home or self-care (01) ==
PROVIDERS: Emergency Provider Registered Nurse; PCP Family Medicine
DX: J10.1 Influenza due to other identified influenza virus with other respiratory manifestations (principal); Z20.822 Contact with and (suspected) exposure to COVID-19
CPT/HCPCS: 87426; 87804; 99213; G0463

== ENCOUNTER 2024-09-30 11:23 | Outpatient (CLI) | payer OTHER, SELFPAY ==
--- OUTSIDE RECORDS SUMMARY | 2024-09-30 11:50 | XMS_ITS | Referral Summary ---
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
--- OUTSIDE RECORDS SUMMARY | 2024-09-30 11:50 | XMS_ITS | Clinical Summary ---
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
--- OUTSIDE RECORDS SUMMARY | 2024-09-30 11:50 | XMS_ITS | Clinical Summary ---
Author Organization [facility] Address [address] [place] [address] Phone Care Team Providers Care Lpn Instructor Name Role Phone Alina Green MD Primary [...] Insurance MEDICAID [facility] [employer] Care Teams Lpn Instructor Relationship Specialty Start Date End Date Hsjoieg Alina England MD [address] [place] [address] [facility] [place] [address] PCP - General Family Medicine 12/01/18
[2024-09-30 12:11] LABS: Hemoglobin A1C 5.3 % (<5.7)
== END 2024-09-30 11:24 | disposition home or self-care (01) ==
PROVIDERS: PCP Family Medicine; Visit Provider Family Medicine
DX: E11.9 Type 2 diabetes mellitus without complications (principal); F41.9 Anxiety disorder, unspecified; F32.A Depression, unspecified
CPT/HCPCS: 36415; 83036

== ENCOUNTER 2024-12-03 10:33 | Outpatient (CLI) | payer OTHER, SELFPAY ==
--- NOTE | ~2024-12-03 | MR_ITS ---
MRI of the brain Clinical History: Altered mental status Technique: Axial and sagittal T1-weighted images were acquired. These were followed by axial T2-weigh nic, diffusion weighted, gradient, and FLAIR images. Findings: No acute infarct, intracranial hemorrhage, or mass lesion. A few tiny foci of FLAIR hyperin tense signal are scattered in the periventricular white matter bilaterally. Ventricles and subarachnoid spaces are unremarkable. Orbits are unremarkable. Paranasal sinuses and m astoid air cells are clear. Major intracranial flow voids are intact. Sagittal midline structures are intact. IMPRESSION: A few tiny foci of hyperintense FLAIR signal in the periventricular white matter bilaterally. Conside r early onset mild chronic microvascular ischemic change, sequela of migraine headache, vasculitis, d emyelinating disease. Reviewed, dictated and finalized at location . IMPRESSION: A few tiny foci of hyperintense FLAIR signal in the periventricular white matte r bilaterally. Consider early onset mild chronic microvascular ischemic change, sequela of migraine headache, vasculitis, demyelinating disease.
--- OUTSIDE RECORDS SUMMARY | 2024-12-03 10:36 | XMS_ITS | Clinical Summary ---
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 Gender Identity Not on file Sexual Orientation [...] Regular Well Visit/Exam 18-64 2012 Influenza Vaccine (Season Ended) 2025 05/08/2023, 06/29/2019, 07/09/2018, Additional history exists DTaP/Tdap/Td Vaccine (8 - Td or Tdap) 12/18/2032 12/18/2022, 07/09/2018, 04/23/2016, Additional history exists Hepatitis B Screening Completed 12/10/1995 , 06/29/1995, 03/23/1995, Additional history exists HPV Vaccines Aged Out No longer eligi ble based on patient's age to complete this topic Pneumococcal vaccine <65 Aged Out No longer eligible based on patient's age to complete this topic Insurance [facility] Care Teams Hvac R Tech Relationship Specialty Start Date End Date Unknown, Notinfile PCP - General 11/10/23
--- OUTSIDE RECORDS SUMMARY | 2024-12-03 10:36 | XMS_ITS | Patient Health Record ---
Author Organization [facility] Address [address] [place] [address] Care Team Providers Care Magnetic Grinder Operator Name Role Phone Nirali Cook Primary Care Provider [phone] Pradeep Ingris Unavailable [phone] AydeePaola Unavailable [phone] Sally Isabel Unavailable [phone] Allergies Allergen (clinical drug ingredient) Drug/Non Drug [...] W/U Status Risk Notes Problem Anxiety disorder (706151794) Anxiety disorder, unspecified (F41.9) Active confirmed Problem Chronic depression (045421431) Chronic depression (F32.9) Active confirmed Encounters Encounter Location Date Provider Diagnosis [address] [place] [address] 12/09/2023 Nirali Cook Chronic depression F32.[address] [address] 12/17/2023 Niralishana LongJoey Chronic depression F32.[address] [address] 01/26/2024 Paola Bajwa Chronic depression F32.9 [facility] [address] [place] [address] 03/10/2024 Pedritoavi Maame Chronic depression F32.9 and Anxiety disorder, unspecified F41.9 [facility] [address] [place] [address] 06/07/2024 Nirali Cook Anxiety disorder, unspecified F41.9 and Chronic depression F32.[address] [address] 01/20/2024 Niralishana LongJoey Chronic depression F32.[address] [address] 06/03/2024 Ingris Powers Chronic depression F32.9 Assessments [...] or be administered own oral medications per [place] protocols. Provided informed consent with understanding of [...] printed 03/10/2024 Chronic depression (ICD-10 - F32.9) 01/26/2024 Chronic [...] Encouraged pt to continue to see therapist. 12/17/2023 Chronic depression (ICD-10 - F32.9) Client [...] crisis line, 988, or go into hospital. 12/09/2023 Chronic depression (ICD-10 - F32.9) Client [...] add low-dose risperidone during the day PRN. 01/20/2024 Chronic depression (ICD-10 - F32.9) 06/07/2024 Anxiety disorder, unspecified (ICD-10 - F41.9) [...] May also contact the 24-hour crisis hotline ([facility]), refer to the closest emergency room or [...] arise. May also contact the -[facility]), refer to the closest emergency room or [...] concerns arise. [facility] also [facility] refer to the closest emergency room [...] Insured Coverage Start Date Coverage End Date [facility] [address] [place] [id number] [phone] [id number] Watson Posey Self - patient is the insured 3 [facility] [address] [address] [phone] [id number] Watson Posey Self - patient is the insured 3 Medical (General) History Medical History History ICD Code Asthma Surgical History Surgery Date(Month/Year) appendix removed 1998 Hospitalization History Reason Date(Month/Year) suicide attempts x4
--- OUTSIDE RECORDS SUMMARY | 2024-12-03 10:36 | XMS_ITS | Referral Summary ---
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
--- OUTSIDE RECORDS SUMMARY | 2024-12-03 10:36 | XMS_ITS | Clinical Summary ---
Author Organization [facility] Address [address] [place] [address] Phone Care Team Providers Care Ribbon Hanking Machine Operator Name Role Phone Alina Green MD [...] Insurance MEDICAID [employer] Care Teams Ribbon Hanking Machine Operator Relationship Specialty Start Date End Date joieg Alina England MD [address] [place] [address] [place] [address] PCP - General Family Medicine 12/01/18
== END 2024-12-03 10:34 | disposition home or self-care (01) ==
LOC: CHSIMG 10:34
PROVIDERS: PCP Family Medicine; Visit Provider Family Medicine
DX: R09.89 Other specified symptoms and signs involving the circulatory and respiratory systems (principal); R56.9 Unspecified convulsions
CPT/HCPCS: 70551

== ENCOUNTER 2024-12-05 10:56 | Outpatient (CLI) | payer OTHER, SELFPAY ==
--- OUTSIDE RECORDS SUMMARY | 2024-12-05 12:50 | XMS_ITS | Patient Health Record ---
Author Organization [facility] Address [address] [place] [address] Care Team Providers Care Radiologist Diagnostic Name Role Phone Nirali Cook Primary Care Provider Pradeep Ingris Unavailable [phone] AydeePaola Unavailable [phone] Sally Isabel Unavailable [phone] Allergies Allergen (clinical drug ingredient) Drug/Non Drug [...] W/U Status Risk Notes Problem Anxiety disorder ([id number]) Anxiety disorder, unspecified (F41.9) Active confirmed Problem Chronic depression (847497536) Chronic depression (F32.9) Active confirmed Encounters Encounter Location Date Provider Diagnosis [address] [place] [address] 12/09/2023 Nirali Cook Chronic depression F32.[address] [address] 12/17/2023 Nirali Cook Chronic depression F32.[address] [address] 01/26/2024 Paola Bajwa Chronic depression F32.9 [facility] [address] [place] [address] 03/10/2024 Joneldemian Maame Chronic depression F32.9 and Anxiety disorder, unspecified F41.9 [facility] [address] [place] [address] 06/07/2024 Nirali Cook Anxiety disorder, unspecified F41.9 and Chronic depression F32.[address] [address] 01/20/2024 Nirali Longnnan Chronic depression F32.[address] [address] 06/03/2024 Ingris Fernández Chronic depression F32.9 Assessments Encounter Date Diagnosis (ICD Code) Assessment Notes Treatment Notes Treatment Clinical Notes Section Notes 03/10/2024 Anxiety disorder, unspecified (ICD-10 - F41.9) [...] or be administered own oral medications per [place] protocols. Provided informed consent with understanding of [...] Encouraged pt to continue to see therapist. 01/20/2024 Chronic depression (ICD-10 - F32.9) 12/17/2023 Chronic depression (ICD-10 - F32.9) Client [...] add low-dose risperidone during the day PRN. 06/03/2024 Chronic depression (ICD-10 - F32.9) 06/07/2024 Anxiety [...] May also contact the 24-hour crisis hotline ([facility]), refer to the closest emergency room or [...] arise. May also contact the [facility]), refer to the closest emergency room or [...] arise. May also contact the [facility] ([facility]), refer to the closest emergency room [...] Insured Coverage Start Date Coverage End Date [facility] [address] [place] [phone] [id number] Watson Posey Self - patient is the insured 3 [facility] [address] [address] [phone] [id number] Watson Posey Self - patient is the insured 3 Medical (General) History Medical History History ICD Code Asthma Surgical History Surgery Date(Month/Year) appendix removed 1998 Hospitalization History Reason Date(Month/Year) suicide attempts x4
--- OUTSIDE RECORDS SUMMARY | 2024-12-05 12:50 | XMS_ITS | Clinical Summary ---
Author Organization [facility] Address [address] [place] [address] Phone Care Team Providers Care Paper Bag Machine Operator Name Role Phone Alina Green [...] Insurance MEDICAID [facility] [employer] Care Teams Paper Bag Machine Operator Relationship Specialty Start Date End Date joieg Alina England MD [address] [place] [address] [place] [address] PCP - General Family Medicine 12/01/18
--- OUTSIDE RECORDS SUMMARY | 2024-12-05 12:50 | XMS_ITS | Referral Summary ---
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
--- OUTSIDE RECORDS SUMMARY | 2024-12-05 12:50 | XMS_ITS | Clinical Summary ---
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
--- NOTE | 2024-12-06 10:14 | WPDNEUROLOGY ---
Neurology EEG Report General Information Date of Study: 12/05/24 TEST EEG DIAGNOSIS Unspecified convulsions. CONDITION OF RECORDING Awake, drowsy and asleep. EEG NUMBER [id number] CLINICAL HISTORY Patient reports he has episodes where he spaces out for a few seconds up to a minute. These episodes happen several times a week.The episodes seem to be more frequent when he is under stress. EEG DESCRIPTION Basic resting occipital frequency consists of low to medium voltage 9 to 11 hertz per 2nd alpha admixed with low-voltage 15 to 18 hertz per 2nd beta activity. Good anteroposterior gradient is noted. Low-voltage beta alpha and theta activity seen during the initial sleep evolving into bilateral symmetrical sleep spindles. Photic stimulation produced normal drive. Hyperventilation produced normal and symmetrical buildup. Non paroxysmal. Nonfocal. Non lateralizing. IMPRESSION Normal EEG. Clinical correlation recommended.
== END 2024-12-05 10:57 | disposition home or self-care (01) ==
LOC: ANHNEURO 10:58
PROVIDERS: PCP Family Medicine; Visit Provider Family Medicine
DX: R56.9 Unspecified convulsions (principal)
CPT/HCPCS: 95816

== ENCOUNTER 2025-07-04 11:46 | Outpatient (CLI) | payer OTHER, SELFPAY ==
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
--- OUTSIDE RECORDS SUMMARY | 2025-07-04 13:30 | XMS_ITS | Clinical Summary ---
Author Organization [facility] Address [address] [place] [address] Phone Care Team Providers Care Campaign Marketing Manager Name Role Phone Alina Green MD Primary [...] 9:40 AM CDT Height 167.6 cm (5' 6) 12/07/2018 9:40 AM CDT Body Mass Index 22.6 12/07/2018 9:40 AM CDT Plan of Treatment Health Maintenance Due Date Last Done Comments Hepatitis C Virus (HCV) Screening 1994 Varicella Immunization (2 of 2 - 2-dose childhood series) 06/29/2002 04/06/2002 Human Papillomavirus (HPV) Immunization (1 - 3-dose SCDM series) 2021 Influenza Immunization (#1) 2025 05/29/2003 SARS-COV-2 Immunization ( - 2024- season) 2025 Respiratory Syncytial Virus (RSV) Immunization (Adult) (1 [...] age to complete this topic Insurance MEDICAID [facility] Care Teams Campaign Marketing Manager Relationship Specialty Start Date End Date Karolyng Alina England MD [address] [facility] [place] [address] PCP - General Family Medicine 12/01/18
--- OUTSIDE RECORDS SUMMARY | 2025-07-04 13:30 | XMS_ITS | Clinical Summary ---
Author Organization [facility] Address [address] [place] [address] Care Team Providers Care Background Check Coordinator Name Role Phone Kelsey Matthews MD Primary Care Provider [phone] Source Comments [facility],non-owned Affiliates and Associated Physician Practices is amultiple site organization consisting of ambulatory clinics and hospital sitesin [place], [place], [place] and [place]. This disclosure is being madepursuant to the Care Everywhere program and may not contain all informatio navailable regarding this patient. Last updated 18.[facility] Allergies No known active allergies Medications * Be aware that medications may not be up to date on this document. Alwaysverify current medications with the patient. 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 Gender Identity Not on file Sexual Orientation Not on file Plan of Treatment Health Maintenance Due Date Last Done Comments HIV SCREENING 2009 HEPATITIS C SCREENING 12/18/2012 DTAP/TDAP/TD VACCINES (1 - Tdap) 2013 HEPATITIS B VACCINE (1 of 3 - 19+ 3-dose series) 2013 HPV VACCINE (1 - 3-dose SCDM series) 2021 DEPRESSION SCREENING 08/10/2024 COVID-19 VACCINE (1 - 2024-2 6 season) 2025 INFLUENZA VACCINE (#1) 2025 ZOSTER VACCINE (1 of 2) 2044 HIB VACCINE Aged Out No longer eligi ble based on patient's age to complete this topic MENINGOCOCCAL (Group B) VACC INE SHARED DECISION-MAKING Aged Out No longer eligibl e based on patient's age to complete this topic MENINGOCOCCAL GROUPS A/C/Y/W VACCINE Aged Out No longer eligible b ased on patient's age to complete this topic PNEUMOCOCCAL VACCINE Aged Out No long er eligible based on patient's age to complete this topic Insurance [facility] Care Teams Background Check Coordinator Relationship Specialty Start Date End Date Kelsey Matthews MD [address] [facility] [address] Paige [address] [place] [phone] PCP - General 06/06/11
--- OUTSIDE RECORDS SUMMARY | 2025-07-04 13:30 | XMS_ITS | Clinical Summary ---
Author Organization [address] Address [address] [place] [id number] Care Team Providers Care Direct Support Staff Name Role Phone Unknown, Notinfile Primary Care [...] on file Legal Sex Male 11:05 PM [employer] Gender Identity Not on file Sexual Orientation [...] 2:53 PM CDT Height 167.6 cm (5' 6) 11/10/2023 2:53 PM CDT Body Mass Index 25.82 11/10/2023 2:53 PM CDT Plan of Treatment Health Maintenance Due Date Last Done Comments Depression Screening 1994 Hepatitis C Screening 1994 Varicella Vaccines (2 of 2 - 2-dose childhood series) 06/29/2002 04/06/2002 Regular Well Visit/Exam 18-64 2012 HPV Vaccines (1 - 3-dose SCDM series) 2021 Influenza Vaccine (#1) 2025 , 06/29/2019, 07/09/2018, Additional history exists DTaP/Tdap/Td Vaccine (8 - Td or Tdap) 12/18/2032 12/18/2022, 07/09/2018, 04/23/2016, Additional history exists Hepatitis B Screening Completed 12/10/1995 , 06/29/1995, 03/23/1995, Additional history exists Pneumococcal vaccine <65 Aged Out No longer eligible based on patient's age to complete this topic Insurance [facility] Care Teams Direct Support Staff Relationship Specialty Start Date End Date Unknown, Notinfile PCP - General 11/10/23
== END 2025-07-04 11:47 | disposition home or self-care (01) ==
PROVIDERS: PCP Family Medicine; Visit Provider Family Medicine
DX: S09.90XA Unspecified injury of head, initial encounter (principal)
CPT/HCPCS: 70450